=== PATIENT | male | born 1975 | race Caucasian/White ===

== ENCOUNTER 2017-06-24 13:47 | Day surgery (SDC) | payer SELFPAY ==
[~2017-06-24] VITALS: Ht 180.3 cm; Wt 97.9 kg
[~2017-06-24 13:47] MED LIST: DEXAMETHASONE SOD PHOS 4 MG/ML VIAL IV ONE; LIDOCAINE HCL 1% PF 5 ML SYRINGE OTHER ONE; ONDANSETRON HCL 4 MG/2 ML VIAL IV ONE; PROPOFOL 200 MG/20 ML AMP IV ONE; STERILE WATER FOR INJECTION 20 ML VIAL IV ONE; XANA1TAB6 PO; ceFAZolin INJ 1,000 MG VIAL IV ONE
[2017-06-24 14:43] LABS: AUTOMATED NEUTROPHIL # 8.5 TH/MM3 (1.8-7.7); BASOPHIL % 0.4 % (0.0-2.0); EOSINOPHIL # 0.1 TH/MM3 (0-0.4); EOSINOPHIL % 1.1 % (0.0-4.0); HEMATOCRIT 42.9 % (39.0-51.0); HEMOGLOBIN 14.2 GM/DL (13.0-17.0); LYMPH % 8.8 % (9.0-44.0); MEAN CELL VOLUME 81.8 FL (80.0-100.0); MEAN PLATELET VOLUME 9.3 FL (7.0-11.0); MONO % 11.3 % (0.0-8.0); MONOCYTE # 1.2 TH/MM3 (0-0.9); NEUT % 78.4 % (16.0-70.0); PLATELET COUNT 265 TH/MM3 (150-450); RED BLOOD COUNT 5.24 MIL/MM3 (4.50-5.90); RED CELL DISTRIBUTION WIDTH 13.7 % (11.6-17.2); WHITE BLOOD COUNT 10.9 TH/MM3 (4.0-11.0)
[2017-06-24] MEDS ORDERED: METR250 PO (14:44)
[2017-06-24] MEDS ORDERED: XANA1TAB2 PO (14:44)
--- NOTE | 2017-06-24 14:53 | PD.HP.UP ---
H&P Update Note The Pre-Admit History and Physical Examination regarding the above named patient was reviewed (including, but not limited to, vital signs, heart, lungs, co-morbid conditions), and upon re-examination it is noted that: the patient's condition has not significantly changed since the last examination. Zuhair España MD Jun 24, 2017 14:53
[2017-06-24] MEDS ORDERED: SODIUM CHLORID 0.9% 500 ML IV PRN (15:15)
[2017-06-24] MEDS ORDERED: METOPROLOL TARTRATE 25 MG TAB PO PRN (15:15)
[2017-06-24] MEDS ORDERED: LACTATED RINGER'S 1000 ML IV PRN (15:15)
[2017-06-24] MEDS ORDERED: POVIDONE IODINE 5% (ANTISEPSIS KIT) 4 APPLICATIONS EACH NARE PRN (15:15)
[2017-06-24] MEDS ORDERED: CHLORHEXIDINE GLUCONATE 2 % 1 PACK (2 CLOTHS) TOPICAL PRN (15:15)
[2017-06-24] MEDS ORDERED: BUPIVACAINE/EPINEPHRINE 0.5% PF 10 ML VIAL ONE (17:02)
[2017-06-24] MEDS ORDERED: LIDOCAINE 1%/EPINEPHrine 1:100,000 SOLN 30 ML VIAL ONE (17:02)
[2017-06-24] MEDS ORDERED: ceFAZolin INJ 1,000 MG VIAL IV ONE (17:47)
[2017-06-24] MEDS ORDERED: MORPHINE SULFATE 4 MG/ML INJ ONE (18:17)
[2017-06-24] MEDS ORDERED: MIDAZOLAM HCL 2 MG/2 ML VIAL ONE (18:17)
[2017-06-24] MEDS ORDERED: *morphine SULFATE 4 MG/ML PERIprocedure ONLY ONE (18:21)
[2017-06-24] MEDS ORDERED: DO NOT ADM ANY ANTICOAGULANT DRUGS PRN (18:30)
[2017-06-24] MEDS ORDERED: oxyCODONE/ACETAMINOPHEN 5 MG/325 MG TAB PO PRN (18:30)
[2017-06-24] MEDS ORDERED: ONDANSETRON HCL 4 MG/2 ML VIAL IV PUSH PRN (18:30)
[2017-06-24] MEDS ORDERED: KETOROLAC TROMETHAMINE 30 MG/ML (IVP) VIAL ONE (18:43)
[2017-06-24] MEDS ORDERED: KETOROLAC TROMETHAMINE 30 MG/ML (IVP) VIAL IV PUSH ONE (19:00)
[2017-06-24 19:15] VITALS: BP 138/85; PULSE 99; RESP 16; TEMP 97.2; O2SAT 95
--- NOTE | 2017-06-26 10:56 | MR ---
cc: Zuhair España MD DATE: 06/24/2017 PREOPERATIVE DIAGNOSIS: Anal pain, probable rectal abscess. PROCEDURE PERFORMED: Exam under anesthesia with sigmoidoscopy, drainage of postanal space abscess with fistulotomy. POSTOPERATIVE DIAGNOSIS: Postanal space abscess. SURGEON: Zuhair España. DESCRIPTION OF PROCEDURE: The patient was placed in the left lateral decubitus position. After adequate anesthesia/sedation, his buttocks were taped apart, prepped with Betadine solution and draped in the usual sterile fashion. Anal canal was dilated and a half hammond retractor inserted. Examination revealed pus coming out of a crypt in the midline just about the dentate line. A probe was passed through this crypt into a postanal space abscess, which is opened along the posterior midline, entering a large cavity full of purulent fluid. Cavity extended up posteriorly and some laterally, unroofing some loculated crypts full of pus. These were all irrigated and curetted for hemostasis. With obtaining hemostasis with light cautery, after irrigation and debridement, the cavity appeared quite clean and was adequately opened. A small fluff dressing was placed in the cavity and brought out through the anal canal. A large fluff dressing placed externally. The patient tolerated the procedure quite well and was brought to the recovery room in stable condition. Sponge and needle counts were correct at the end of the procedure. Zuhair España MD [facility]/ , 11:39 PM , 11:54 PM
== END 2017-06-24 19:40 | disposition home or self-care (01) ==
LOC: HSDC 13:47
PROVIDERS: ATTEND Colon & Rectal Surgery
DX: K61.2 Anorectal abscess (principal); I10 Essential (primary) hypertension
CPT/HCPCS: 00902; 46050; 85025; J0690; J1100; J1885; J2250; J2270; J2405; J3010; J7120